=== PATIENT | female | born 1985 | race Caucasian/White ===

== ENCOUNTER 2017-08-04 09:51 | Emergency (ER) | payer OTHER, MEDICAID ==
[~2017-08-04] VITALS: Ht 157.5 cm; Wt 82.0 kg
[2017-08-04] MEDS ORDERED: ibuprofen (10:12)
[2017-08-04] MEDS ORDERED: tylenol (10:12)
[2017-08-04] MEDS ORDERED: ACETAMINOPHEN 325MG TABLET ONE (10:19)
[2017-08-04] MEDS ORDERED: PENICILLIN G BENZATHINE 1,200,000 UNITS/2ML SYR IM ONE (12:00)
[2017-08-04 13:15] VITALS: BP 146/89
== END 2017-08-04 13:35 | disposition home or self-care (01) ==
LOC: ER 10:30
DX: J02.9 Acute pharyngitis, unspecified (principal); R05 Cough; Z98.890 Other specified postprocedural states
CPT/HCPCS: 71045; 81025; 96372; 99283; J0561; Z7610